=== PATIENT | female | born 1990 ===

== ENCOUNTER 2017-08-17 18:42 | Emergency (ER) | payer MEDICAID, OTHER ==
[2017-08-17 18:53] VITALS: BMI 32.8
[2017-08-17 19:07] VITALS: BP 122/76; PULSE 99; TEMP 98.3
--- NOTE | 2017-08-17 19:53 | ED PDOC ---
Arrival/HPI - General Chief Complaint: Back Pain Time Seen by Provider: 08/17/17 19:25 Historian: Patient - History of Present Illness Narrative History of Present Illness (Text): 08/17/17 19:53 A 27 year old female presents to the emergency department complaining of left flank pain, worsening the last three days. Patient reports pain is chronic, similar symptoms over last 3 years. Patient denies any hematuria, fever or any other complaints at this time. 08/17/17 22:35 Symptom Onset: Sudden Symptom Course: Unchanged Activities at Onset: Rest Context: Home Past Medical History - Provider Review Nursing Documentation Reviewed: Yes - Past History Past History: No Previous - Infectious Disease Hx of Infectious Diseases: None - Tetanus Immunization Tetanus Immunization: Unknown - Psychiatric Hx Depression: No Hx Emotional Abuse: No Hx Physical Abuse: No Hx Substance Use: No - Past Surgical History Past Surgical History: No Previous - Anesthesia Hx Anesthesia: No Hx Anesthesia Reactions: No Hx Malignant Hyperthermia: No - Suicidal Assessment Feels Threatened In Home Enviroment: No Family/Social History - Physician Review Nursing Documentation Reviewed: Yes Family/Social History: No Known Family HX Smoking Status: Never Smoked Hx Alcohol Use: No Hx Substance Use: No Allergies/Home Meds Allergies/Adverse Reactions: Allergies No Known Allergies Allergy (Verified 02/17/16 13:51) Review of Systems - Physician Review All systems were reviewed & negative as marked: Yes - Review of Systems Constitutional: absent: Fevers Genitourinary Female: absent: Hematuria Musculoskeletal: Other (left flank pain) Physical Exam Vital Signs Reviewed: Yes Vital Signs Temp Pulse Resp BP Pulse Ox 08/17/17 20:32 19 99 08/17/17 18:56 98.3 F 99 H 18 122/76 98 Temperature: Afebrile Blood Pressure: Normal Pulse: Regular Respiratory Rate: Normal Appearance: Positive for: Well-Appearing, Non-Toxic, Comfortable Pain Distress: None Mental Status: Positive for: Alert and Oriented X 3 - Systems Exam Head: Present: Atraumatic, Normocephalic Pupils: Present: PERRL Extroacular Muscles: Present: EOMI Conjunctiva: Present: Normal Mouth: Present: Moist Mucous Membranes Neck: Present: Normal Range of Motion Respiratory/Chest: Present: Clear to Auscultation, Good Air Exchange. No: Respiratory Distress, Accessory Muscle Use Cardiovascular: Present: Regular Rate and Rhythm, Normal S1, S2. No: Murmurs Abdomen: Present: Normal Bowel Sounds. No: Tenderness, Distention, Peritoneal Signs Back: Present: Other (left flank tenderness) Upper Extremity: Present: Normal Inspection. No: Cyanosis, Edema Lower Extremity: Present: Normal Inspection. No: Edema Neurological: Present: GCS=15, CN II-XII Intact, Speech Normal Skin: Present: Warm, Dry, Normal Color. No: Rashes Psychiatric: Present: Alert, Oriented x 3, Normal Insight, Normal Concentration Medical Decision Making ED Course and Treatment: 08/17/17 19:50 Impression: A 27 year old female with left flank pain. Plan: -- Urinalysis -- Reassess and disposition Progress Notes: 08/17/17 22:35 pt reports had outpt neprhology eval and told "everything is ok". urine neg for blood infection, stone uti less lieklye. well pearing pain improved. pt states feels well for outpt management for continued diagnostic w/u - Lab Interpretations Lab Results: Lab Results 08/17/17 19:55: Urine Color Yellow, Urine Appearance Sl cloudy, Urine pH 6.0, Ur Specific [place] >= 1.030, Urine Protein Negative, Urine Glucose (UA) Negative, Urine Ketones Negative, Urine Blood Negative, Urine Nitrate Negative, Urine Bilirubin Negative, Urine Urobilinogen 0.2, Ur Leukocyte Esterase Negative , Urine HCG, Qual Negative - Medication Orders Current Medication Orders: Discontinued Medications Acetaminophen (Tylenol 325mg Tab) 975 mg PO STAT STA Stop: 08/17/17 19:49 Last Admin: 08/17/17 20:00 Dose: 975 mg MAR Pain/Vitals Document 08/17/17 20:00 [email or web address] (Rec: 08/17/17 20:01 [email or web address] [facility] [place] Pain Reassessment Is This A Pain ReAssessment? No Sleep Is patient sleeping during reassessment? No Presence of Pain Presence of Pain Yes Pain Scale Used Pain Scale Used Numeric Location Pain Location Body Site Back Description Constant Intensity 6 Scale Used Numeric Pain Behavior Facial Grimacing Aggravating Factors Changing Position Alleviating Factors Medication - Scribe Statement The provider has reviewed the documentation as recorded by the Evitaibmaximino Dunham Provider Scribe Attestation: All medical record entries made by the Evitaibmaximino were at my direction and personally dictated by me. I have reviewed the chart and agree that the record accurately reflects my personal performance of the history, physical exam, medical decision making, and the department course for this patient. I have also personally directed, reviewed, and agree with the discharge instructions and disposition. Disposition/Present on Arrival - Present on Arrival Any Indicators Present on Arrival: No History of DVT/PE: No History of Uncontrolled Diabetes: No Urinary Catheter: No History of Decub. Ulcer: No History Surgical Site Infection Following: None - Disposition Have Diagnosis and Disposition been Completed?: Yes Diagnosis: Back pain Disposition: HOME/ ROUTINE Disposition Time: 08:00 Condition: STABLE Discharge Instructions (ExitCare): Low Back Pain (DC) Additional Instructions: please follow up with your doctor/ return to er with worsening symptoms or concerns. Prescriptions: Cyclobenzaprine [Cyclobenzaprine HCl] 10 mg PO DAILY PRN #10 tab PRN Reason: Muscle Spasm Naproxen [Naprosyn] 500 mg PO BID PRN #14 tablet PRN Reason: Pain, Mild (1-3) Referrals: PCP,NO [Primary Care Provider] - Follow up with primary Forms: Ayannah (Ukrainian)
[2017-08-17 20:11] LABS: URINE BILIRUBIN NEGATIVE (NEGATIVE); URINE BLOOD NEGATIVE (NEGATIVE); URINE GLUCOSE (UA) NEGATIVE (NEGATIVE); URINE LEUKOCYTE ESTERASE NEGATIVE Leu/uL (NEGATIVE); URINE NITRATE NEGATIVE (NEGATIVE); URINE PROTEIN NEGATIVE mg/dL (<30 mg/dL); URINE UROBILINOGEN 0.2 E.U./dL (<1 E.U./dL)
[2017-08-17 20:12] LABS: URINE APPEARANCE SL CLOUDY (CLEAR); URINE COLOR YELLOW (YELLOW)
[2017-08-17 20:13] LABS: HCG,QUALITATIVE URINE NEGATIVE (NEGATIVE)
[2017-08-17 20:33] VITALS: RESP 19; O2SAT 99
== END 2017-08-17 20:33 | disposition home or self-care (01) ==
LOC: ED 18:42
DX: M54.5 Low back pain (principal)

== ENCOUNTER 2018-04-13 10:10 | Emergency (ER) | payer MEDICAID, OTHER ==
[2018-04-13 10:42] VITALS: BMI 30.7
[2018-04-13] MEDS ORDERED: TDAP Vaccine 0.5 mL Syr IM ONE (11:08)
--- NOTE | 2018-04-13 11:08 | ED PDOC ---
Arrival/HPI - General Chief Complaint: Lower Extremity Problem/Injury Time Seen by Provider: 04/13/18 10:50 Historian: Patient - History of Present Illness Narrative History of Present Illness (Text): 04/13/18 11:01 27 y/o female, no significant pmh, nkda, last tetanus over 10 years ago, c/o rt. foot step on the nail this morning about 1 hour ago. pt. stated that she was in her normal flat base rubber shoe, walking, accidentally step on the rt. foot heel region, was bleeding but resolved, no numbness or tingling, no difficulty moving the rt. foot/ankle/toes, no palpitation, no headache or night sweat, no rash, no dizziness, no other medical or psychological complaints. Past Medical History - Provider Review Nursing Documentation Reviewed: Yes - Past History Past History: No Previous - Infectious Disease Hx of Infectious Diseases: None - Tetanus Immunization Tetanus Immunization: Unknown - Psychiatric Hx Depression: No Hx Emotional Abuse: No Hx Physical Abuse: No Hx Substance Use: No - Past Surgical History Past Surgical History: No Previous - Anesthesia Hx Anesthesia: No Hx Anesthesia Reactions: No Hx Malignant Hyperthermia: No - Suicidal Assessment Feels Threatened In Home Enviroment: No Family/Social History - Physician Review Nursing Documentation Reviewed: Yes Family/Social History: Unknown Family HX Smoking Status: Never Smoked Hx Alcohol Use: No Hx Substance Use: No Allergies/Home Meds Allergies/Adverse Reactions: Allergies No Known Allergies Allergy (Verified 02/17/16 13:51) Review of Systems - Review of Systems Constitutional: absent: Fatigue, Fevers Eyes: absent: Vision Changes ENT: absent: Hearing Changes Respiratory: absent: SOB, Cough Cardiovascular: absent: Chest Pain Gastrointestinal: absent: Abdominal Pain, Nausea, Vomiting Musculoskeletal: absent: Arthralgias, Back Pain Skin: Other (+rt. foot puncture wound). absent: Rash, Pruritis, Skin Lesions, Abscess, Ulcer, Cellulitis Physical Exam - Systems Exam Head: Present: Atraumatic, Normocephalic Pupils: Present: PERRL Extroacular Muscles: Present: EOMI Conjunctiva: Present: Normal Mouth: Present: Moist Mucous Membranes Neck: Present: Normal Range of Motion Respiratory/Chest: Present: Clear to Auscultation, Good Air Exchange. No: Respiratory Distress, Accessory Muscle Use Cardiovascular: Present: Regular Rate and Rhythm, Normal S1, S2. No: Murmurs Abdomen: No: Tenderness, Distention, Peritoneal Signs Back: Present: Normal Inspection Upper Extremity: Present: Normal Inspection. No: Cyanosis, Edema Lower Extremity: Present: Normal Inspection, Other (Rt. foot: sole laterally of the calcaneal region visible blood scab wound less than 0.2cm diameter with no active bleeding or hole noted, FROM without limitation, sensation intact, motor 5/5, +DPPT pulses, capillary refill< 2 seconds, neurovascular intact. ). No: Edema Neurological: Present: GCS=15, CN II-XII Intact, Speech Normal Skin: Present: Warm, Dry, Normal Color. No: Rashes Psychiatric: Present: Alert, Oriented x 3, Normal Insight, Normal Concentration Medical Decision Making ED Course and Treatment: 04/13/18 11:14 -tdap -urine hcg -rt. foot xray -observe and reassess 04/13/18 13:08 -Rt. foot xray show: Small linear radiodensity inferior to the posterior calcaneus inferiorly potentially reflecting heterotopic soft tissue calcification though tiny chip or avulsion fracture not completely excluded. Small linear nonmetallic retained foreign body not completely excluded as well. No definite metallic retained radiodense foreign body appreciable. -Wound clean with saline 1000cc, clean with betadine, no visible foreign bodies and the patient doesn't feel any foreign bodies as the nail is clean, all labs and radiology results discussed with the patient, advised consumer affairs manager follow up. -I will place the patient on the ciprofloxacin for pseudomonas coverage, risk and side effects including but not limited to prolong QT and achilles tendon ruptures, pt. understood and agreed on the treatment plan. -Discharge home with posterior splint, motrin, ciprofloxacin, bacitracin o inment, crutches, avoid gym and exercise until you are clear by your own pmd and consumer affairs manager, non-weight bearing, follow up with your own pmd and consumer affairs manager within 2 days, return to the ER for any new or worsening signs or symptoms. - RAD Interpretation Radiology Orders: Date of service: 04/13/2018 PROCEDURE: Right Foot Radiographs. HISTORY: rt. foot heel step on the nail COMPARISON: None. FINDINGS: BONES: No large fracture is identified or destructive bony lesion. There is a small linear radiodensity seen approaching but not contiguous with the tubercle at the base of the calcaneus posteriorly and may reflect heterotopic calcification at the plantar fascia. A tiny chip or avulsion fracture is difficult to completely exclude. It is understood that the patient stepped on a nail. Retained radiodense foreign body is possible though not favored. No emphysema soft tissue changes are identified and no metallic retained foreign radiodense foreign body is appreciated definitively. JOINTS: No subluxation or dislocation throughout the right foot. Variable accessory ossicles are seen related to the cuboid bone and the navicular bone which are otherwise unremarkable. SOFT TISSUES: Please see bone section above. OTHER FINDINGS: None. IMPRESSION: Small linear radiodensity inferior to the posterior calcaneus inferiorly pot entially reflecting heterotopic soft tissue calcification though tiny chip or avulsion fracture not completely excluded. Small linear nonmetallic retained foreign body not completely excluded as well. No definite metallic retained radiodense foreign body appreciable. Shank Stitcher: Radiologist - PA / BUILDING APPRAISER / Resident Statement / has reviewed & agrees with the documentation as recorded. Disposition/Present on Arrival - Present on Arrival Any Indicators Present on Arrival: No History of DVT/PE: No History of Uncontrolled Diabetes: No Urinary Catheter: No History of Decub. Ulcer: No History Surgical Site Infection Following: None - Disposition Have Diagnosis and Disposition been Completed?: Yes Diagnosis: Puncture wound Disposition: HOME/ ROUTINE Disposition Time: 13:14 Patient Plan: Discharge Condition: IMPROVED Additional Instructions: -Discharge home with posterior splint, motrin, ciprofloxacin, bacitracin oinment, crutches, avoid gym and exercise until you are clear by your own pmd and consumer affairs manager, non-weight bearing, follow up with your own pmd and consumer affairs manager within 2 days, return to the ER for any new or worsening signs or symptoms. Prescriptions: Bacitracin Ointment [Bacitracin] 1 appful TOP BID #15 g Ciprofloxacin [Cipro] 500 mg PO BID #14 tab Ibuprofen [Motrin] 600 mg PO QID PRN #30 tab PRN Reason: Other Referrals: Lizy Carr DO [Primary Care Provider] - Follow up with primary Shavonne Mock DPM [Staff Provider] - Follow up with primary Forms: Viibar ([place] Island[place]), WORK NOTE
[2018-04-13 11:26] VITALS: RESP 18; TEMP 98.3
--- NOTE | 2018-04-13 13:05 | RAD ---
Date of service: 04/13/2018 PROCEDURE: Right Foot Radiographs. HISTORY: rt. foot heel step on the nail COMPARISON: None. FINDINGS: BONES: No large fracture is identified or destructive bony lesion. There is a small linear radiodensity seen approaching but not contiguous with the tubercle at the base of the calcaneus posteriorly and may reflect heterotopic calcification at the plantar fascia. A tiny chip or avulsion fracture is difficult to completely exclude. It is understood that the patient stepped on a nail. Retained radiodense foreign body is possible though not favored. No emphysema soft tissue changes are identified and no metallic retained foreign radiodense foreign body is appreciated definitively. JOINTS: No subluxation or dislocation throughout the right foot. Variable accessory ossicles are seen related to the cuboid bone and the navicular bone which are otherwise unremarkable. SOFT TISSUES: Please see bone section above. OTHER FINDINGS: None. IMPRESSION: Small linear radiodensity inferior to the posterior calcaneus inferiorly potentially reflecting heterotopic soft tissue calcification though tiny chip or avulsion fracture not completely excluded. Small linear nonmetallic retained foreign body not completely excluded as well. No definite metallic retained radiodense foreign body appreciable. Findings discussed with DAVID Justice with written down read back verification 04/13/2018 12:50 p.m..
[2018-04-13 13:53] VITALS: BP 120/73; PULSE 75; O2SAT 97
== END 2018-04-13 13:53 | disposition home or self-care (01) ==
LOC: ED 10:10
DX: S91.331A Puncture wound without foreign body, right foot, initial encounter (principal); W45.0XXA Nail entering through skin, initial encounter; Z23 Encounter for immunization